=== PATIENT | male | born 1940 | race Caucasian/White ===

== ENCOUNTER 2018-08-30 11:47 | Day surgery (SDC) | payer MEDICARE, OTHER ==
[~2018-08-30] VITALS: Ht 182.9 cm; Wt 121.7 kg
[~2018-08-30 11:47] MED LIST: ALBU90OI6 INH; AMIO200 PO; ASPI81CH PO; BUME2; CARV25 PO; DILT180 PO; FLEC100 PO; FURO40 PO; HYDR1TAB94 PO; LANS15EC PO; LOSA50 PO; OMEP20ER PO; POTA10T PO; QUIN10 PO; TAMS.4ER PO; WARF2.5; WARF5 PO
--- NOTE | 2018-08-30 12:43 | NUR ---
08/30/18 1243 Carolina Berrios 1 IV MISS IN RW BY RN 1 GOOD IV IN RAC BY RN PT TOW
--- NOTE | 2018-08-30 14:45 | NUR ---
08/30/18 1445 Nieves Rodriguez DURING THE RECOVERY/STEP DOWN PORTION I OFFERED THE PATIENT SOMETHING TO DRINK X 3 AND HE REFUSED EACH TIME.
== END 2018-08-30 14:40 | disposition home or self-care (01) ==
LOC: ORSCSDS 11:47
PROVIDERS: Internal Medicine Gastroenterology
PROC: 0DBP8ZX Excision of Rectum, Via Natural or Artificial Opening Endoscopic, Diagnostic (ICD-10-PCS; principal; 2018-08-30 13:15)
PROC: 0DBM8ZX Excision of Descending Colon, Via Natural or Artificial Opening Endoscopic, Diagnostic (ICD-10-PCS; principal; 2018-08-30 13:15)
PROC: 0DBL8ZX Excision of Transverse Colon, Via Natural or Artificial Opening Endoscopic, Diagnostic (ICD-10-PCS; principal; 2018-08-30 13:15)
DX: Z12.11 Encounter for screening for malignant neoplasm of colon (principal); D12.3 Benign neoplasm of transverse colon; D12.4 Benign neoplasm of descending colon; D12.8 Benign neoplasm of rectum; K64.8 Other hemorrhoids; K44.9 Diaphragmatic hernia without obstruction or gangrene; K57.30 Diverticulosis of large intestine without perforation or abscess without bleeding; I10 Essential (primary) hypertension; G47.33 Obstructive sleep apnea (adult) (pediatric); Z95.0 Presence of cardiac pacemaker; Z79.899 Other long term (current) drug therapy; Z79.82 Long term (current) use of aspirin
CPT/HCPCS: 88305; J7120

== ENCOUNTER → 2021-02-19 | Outpatient (CLI) | payer MEDICARE, OTHER ==
[2021-02-19 12:27] LABS: Bun/Creatinine Ratio 15.3 (12.0-20.0); Calcium, Blood 8.7 mg/dL (8.5-10.1); Creatinine, Blood 1.83 mg/dL (0.60-1.20); Potassium, Blood 3.9 mmol/L (3.5-5.5)
== END ==
LOC: LAB 10:24 → LAB SHORT 10:24
DX: I42.8 Other cardiomyopathies (principal); M25.562 Pain in left knee; G89.29 Other chronic pain; I10 Essential (primary) hypertension
CPT/HCPCS: 36415; 80048

== ENCOUNTER 2022-09-25 07:11 | Day surgery (SDC) | payer MEDICARE, OTHER ==
[~2022-09-25] VITALS: Ht 182.9 cm; Wt 113.0 kg
[~2022-09-25 07:11] MED LIST changes: -AMIO200 PO; +Amiodarone HCl200 MG PO; -BUME2; +BUME2 PO
[2022-09-25] MEDS ORDERED: Vitamin D1000 UNI1 PO (07:51)
[2022-09-25] MEDS ORDERED: CRANBERRY PLUS VIT C PO (07:53)
[2022-09-25] MEDS ORDERED: FARXIGA10 MG PO (07:53)
[2022-09-25] MEDS ORDERED: DICLOFENAC SOD100 GM TD (07:54)
[2022-09-25] MEDS ORDERED: FAMO40 PO (07:54)
[2022-09-25] MEDS ORDERED: ENTRESTO 24 MG1 EACH PO (07:55)
[2022-09-25] MEDS ORDERED: Nitroglycerin1 EAC3 TOP (07:55)
--- NOTE | 2022-09-25 12:31 | NUR ---
patient verbaliozed understanding of discharge instructions and precautions. wrist board in place.. no bleeding. transferred via wheelchair to waiting car. son driving.
== END 2022-09-25 13:39 | disposition home or self-care (01) ==
LOC: MHTC 07:11
DX: I25.10 Atherosclerotic heart disease of native coronary artery without angina pectoris (principal); I35.0 Nonrheumatic aortic (valve) stenosis; I13.0 Hypertensive heart and chronic kidney disease with heart failure and stage 1 through stage 4 chronic kidney disease, or unspecified chronic kidney disease; N18.9 Chronic kidney disease, unspecified; I50.20 Unspecified systolic (congestive) heart failure; I42.8 Other cardiomyopathies; I48.91 Unspecified atrial fibrillation; E66.9 Obesity, unspecified
CPT/HCPCS: 93454; 99152; C1887; C1894; J1644; J2250; J3010; J7030; J7040; J7050; Q9967

== ENCOUNTER 2024-11-10 11:34 | Inpatient (IN) | payer MEDICARE, OTHER ==
[~2024-11-10] VITALS: Ht 185.4 cm; Wt 103.4 kg
[2024-11-10] VITALS (33 sets, daily range): BP systolic 82–154; BP diastolic 61–97
[~2024-11-10 11:34] MED LIST changes: +CRANBERRY PLUS VIT C PO; +DICLOFENAC SOD100 GM TD; +ENTRESTO 24 MG1 EACH PO; +FAMO40 PO; +FARXIGA10 MG PO; +Nitroglycerin1 EAC3 TOP; +Vitamin D1000 UNI1 PO
[2024-11-10 11:51] LABS: Calcium, Ionized (POC) 1.06 mmol/L (1.10-1.46); Chloride (POC) 109 mmol/L (98-108); Creatinine (POC) 2.3 mg/dL (0.8-1.3); Glucose (ISTAT POC) 142 mg/dL (70-99); Hemoglobin (POC) 15.3 g/dL (13.5-17.5); Potassium (POC) 4.4 mmol/L (3.5-5.5); Sodium (POC) 140 mmol/L (135-148); Total CO2 (POC) 24 mmol/L (21-32)
[2024-11-10] MEDS ORDERED: propofoL 100 ML IV SCH (11:55)
[2024-11-10] MEDS ORDERED: FentaNYL Citrate 50 MCG/ML 2 ML Injection IV PRN (11:55)
[2024-11-10 12:07] LABS: BASOPHILS ABSOLUTE AUTO 0.13 K/mm3 (0.00-0.23); BASOPHILS PERCENT AUTO 2 % (0-2); EOSINOPHILS ABSOLUTE AUTO 0.31 K/mm3 (0.00-0.68); EOSINOPHILS PERCENT AUTO 4 % (0-6); Hematocrit 47.3 % (37.0-53.0); Hemoglobin 15.6 g/dL (13.5-17.5); IMMATURE GRAN ABSOLUTE AUTO 0.03 K/mm3 (0.00-0.10); IMMATURE GRAN PERCENT AUTO 0 % (0-1); LYMPHOCYTES ABSOLUTE AUTO 2.17 K/mm3 (0.84-5.20); LYMPHOCYTES PERCENT AUTO 29 % (21-46); MONOCYTES ABSOLUTE AUTO 1.04 K/mm3 (0.16-1.47); MONOCYTES PERCENT AUTO 14 % (4-13); Mean Corpuscular HGB 34.8 pg (26.0-34.0); Mean Corpuscular Volume 106 fL (80-100); Mean Platelet Volume 11.8 fL (9.1-12.4); NEUTROPHILS PERCENT AUTO 52 % (41-73); Platelet Count 125 K/mm3 (150-400); RDW Coefficient Variation 14.6 % (11.7-14.2); RDW Standard Deviation 57.1 fL (35.1-46.3); Red Blood Cell Count 4.48 M/mm3 (4.30-5.90); White Blood Cell Count 7.58 K/mm3 (4.00-11.30)
[2024-11-10] MEDS ORDERED: NS 1,000 ML IV ONE (12:18)
[2024-11-10] MEDS ORDERED: NS 1,000 ML IV SCH (12:20)
[2024-11-10 12:23] LABS: Albumin, Blood 3.3 g/dL (3.4-5.0); Albumin/Globulin Ratio 1.1 (0.8-1.8); Bilirubin, Total 0.8 mg/dL (0.1-1.0); Bun/Creatinine Ratio 19.5 (12.0-20.0); Calcium, Blood 8.1 mg/dL (8.5-10.1); Globulin, Blood 2.9 g/dL (2.2-4.0); Potassium, Blood 4.5 mmol/L (3.5-5.5); Total Protein, Blood 6.2 g/dL (6.4-8.2)
[2024-11-10 13:57] LABS: Source, Urine Foley catheter
[2024-11-10 14:01] LABS: Appearance, Urine Hazy (Clear); Bilirubin, Urine Neg (Neg); Blood, Urine 5+ (Neg); Glucose Qualitative, Urine 3+ (Neg); Ketones, Urine Neg (Neg); Leukocyte Esterase, Urine Neg (Neg); Nitrite, Urine Neg (Neg); Protein, Urine 1+ (Neg); Urobilinogen, Urine NORM (Normal)
[2024-11-10 14:13] LABS: Color, Urine Pale Yellow (P-Yellow)
[2024-11-10 14:15] LABS: Hyaline Casts 0-2 /lpf (0-2); Red Blood Cells, Urine 50-100 /hpf (0-2); White Blood Cells, Urine 0-2 /hpf (0-5)
[2024-11-10 14:16] LABS: Bacteria Not Seen /hpf; Squamous Epithelial Cells Not Seen /hpf (Few)
[2024-11-10] MEDS ORDERED: Magnesium Hydroxide Conc 10 ML UDC PO PRN (14:45)
--- NOTE | 2024-11-10 15:01 | NUR ---
Spiritual Care At the request of family this ob tech came to bedside in ED26. Pt. is intubated. Spouse and son are at bedside. Facilitated a life review and family spoke of the Pts. elisabet and their local Gnosticism sikh. Dr. Shore came and met with the family. When he left we gathered at bedside and prayed for the Pt. Family verbalized gratitude for the spiritual care visit.
[2024-11-10 15:51] LABS: International Normalized Ratio 2.88; Prothrombin Time Results 28.5 Sec (9.7-11.5)
--- NOTE | 2024-11-10 16:00 | NUR ---
[place] of care: Received patient from ER. RASS +2, purposeful movement but does not follow commands, does track with cough/gag, pupils 2/brisk. Propofol increased to 40 mcgs/kg/min per Dr. Patino due to agitation. In V paced rhythm with multiple PVCs. Blood pressures stable. On ACVC 16/500/35%/5, diminished lung sounds. Garner cath & OGT in place. PIV x3. Son & updated at bedside.
[2024-11-10] MEDS ORDERED: Etomidate 2MG / ML 10ML Vial IV ONE (16:57)
[2024-11-10] MEDS ORDERED: Rocuronium Bromide 10 MG/ML 5ML Injection IV ONE (16:57)
[2024-11-10] MEDS ORDERED: Bumetanide 0.25 MG/ML 4ML ViaL IV SCH (17:00)
--- NOTE | 2024-11-10 17:59 | NUR ---
End of shift summary: No acute changes since assumption of care. Will continue to monitor. See charting for further details.
[2024-11-10] MEDS ORDERED: Cetylpyridinium Chloride 1 EA MISC MT SCH (20:00)
[2024-11-11] VITALS (59 sets, daily range): BP systolic 82–156; BP diastolic 48–110
[2024-11-11] MEDS ORDERED: Hydrogen Peroxide 1.5 % Solution MT SCH
[2024-11-11 03:24] LABS: Hematocrit 47.4 % (37.0-53.0); Hemoglobin 15.7 g/dL (13.5-17.5); Mean Corpuscular HGB 33.9 pg (26.0-34.0); Mean Corpuscular HGB Conc 33.1 g/dL (31.5-36.5); Mean Corpuscular Volume 102 fL (80-100); Mean Platelet Volume 11.5 fL (9.1-12.4); Platelet Count 129 K/mm3 (150-400); RDW Coefficient Variation 14.6 % (11.7-14.2); RDW Standard Deviation 55.8 fL (35.1-46.3); Red Blood Cell Count 4.63 M/mm3 (4.30-5.90); White Blood Cell Count 8.28 K/mm3 (4.00-11.30)
[2024-11-11 03:39] LABS: Anti-Xa UFH, PHA Monitoring <0.10 IU/mL; International Normalized Ratio 2.95; Prothrombin Time Results 29.1 Sec (9.7-11.5)
[2024-11-11 03:43] LABS: Bun/Creatinine Ratio 18.6 (12.0-20.0); Creatinine, Blood 1.99 mg/dL (0.60-1.20); Potassium, Blood 3.5 mmol/L (3.5-5.5)
[2024-11-11] MEDS ORDERED: Pantoprazole Sodium 20 MG Tab PO SCH (06:00)
--- NOTE | 2024-11-11 06:23 | NUR ---
SHIFT SUMMERY PT REMAINS INTUBATED W/ ETT INTACT AND PATENT TO THE VENT. PT HAS BEEN PACED ON THE MARKET RESEARCH EXECUTIVE. BP WNL. OXYGEN SAT >92% W/NO DISTRESS THIS SHIFT. PT IS SEDATED W/PROPOFOL. HUSSEIN CATH INTACT PATENT AND DRAINING TO GRAVITY. NO ACUTE CHANGES TO POC THIS SHIFT
[2024-11-11] MEDS ORDERED: Enoxaparin 40 MG/0.4 ML SYR SC SCH (09:00)
--- NOTE | 2024-11-11 10:17 | NUR ---
EXTUBATION PT PLACED ON PRESSURE SUPPORT 02/10 BY RT LETHA. SEDATION OFF. PT ABLE TO FOLLOW COMMANDS AND WITHOUT RESPIRATORY DISTRESS. DR LANZA GAVE THE ORDER TO EXTUBATE. PT EXTUBATED AT 1008 [address] LETHA. PT PLACED ON 2L O2 NC. PT WITH GOOD COUGH EFFORT. OGT REMOVED WITH EXTUBATION. PT FAMILY AT BEDSIDE.
[2024-11-11] MEDS ORDERED: Bumetanide 0.25 MG/ML 4ML ViaL IV SCH (14:00)
[2024-11-11] MEDS ORDERED: Potassium Chloride 20 MEQ/15 ML UDC PO ONE (14:00)
[2024-11-11] MEDS ORDERED: TORSE20 PO (15:03)
[2024-11-11] MEDS ORDERED: IPRATROPIUM BRO30 ML (15:07)
--- NOTE | 2024-11-11 17:51 | NUR ---
SHIFT SUMMARY PT DID WELL THIS SHIFT. PT EXTUBATED THIS MORNING TO 2L O2 NC. PT HAS REMAINED AWAKE, ALERT, AND ORIENTED. PT REMAINS ON 2L O2 NC. PT WITH STRONG COUGH EFFORT AND SPEECH IS CLEAR. PT TAKING PO INTAKE WELL. VITAL SIGNS HAVE REMAINED STABLE. PT WITH TWO SEPERATE 4-5 BEAT RUNS OF V TACH THIS SHIFT. PT REMAINS PACED WITH HR 70'S AND BP STABLE. HUSSEIN TEMP PROBE REMAINS IN PLACE WITH LARGE VOLUME OF CLEAR YELLOW URINE OUTPUT NOTED WITH DIURESIS. PT FAMILY AT BEDSIDE. WILL CONTINUE TO MONITOR AND REPORT OFF TO ONCOMING RN.
[2024-11-11] MEDS ORDERED: Warfarin Sodium 2 MG Tab PO ONE (18:10)
[2024-11-11] MEDS ORDERED: Amiodarone HCl 200 MG Tab PO SCH (18:40)
--- NOTE | 2024-11-11 18:44 | NUR ---
DR JOÃO MOYER RETURNED CALL AND DISCUSSED EPISODES OF V TACH. DR MOYER PLANS TO CALL [facility] ABOUT POTENTIAL ANGIO NOW THAT PT IS EXTUBATED. ORDERS RECIEVED TO RESTART PT HOME AMIODARONE.
--- NOTE | 2024-11-11 20:59 | NUR ---
PT HAS HAD MULTIPLE SHORT RUNS OF VTACH SINCE MY SHIFT BEGAN. HE DENIES ANY SYMPTOMS W/THESE EPISODES. DR MOYER WAS NOTIFIED. STATED THAT HE DID NOT WANT ANY INTERVENTIONS AND THAT HE WAS AWARE PT WAS HAVING THESE EPISODES. HE ALSO STATED THAT HE DID NOT WANT ME TO CALL THE BEARING PRESS MACHINE OPERATOR BANK BOSS TO NOTIFY HIM OF ANY VTACH EPISODES. HE STATED TO JUST GIVE HIM HIS HOME MEDICATIONS ORDERED AND HE WOULD TAKE CARE OF THE PATIENT TOMORROW. NOTIFIED CHARGE NURSE SARANYA CASTILLO RN OF HIS RESPONSE WELL.
[2024-11-11] MEDS ORDERED: Sacubitril/Valsartan 24 MG-26 MG Tab PO SCH (21:00)
[2024-11-11] MEDS ORDERED: Carvedilol 25 MG Tab PO SCH (21:00)
[2024-11-12] VITALS (18 sets, daily range): BP systolic 94–128; BP diastolic 54–112
[2024-11-12 03:53] LABS: International Normalized Ratio 3.73; Prothrombin Time Results 36.2 Sec (9.7-11.5)
[2024-11-12 03:56] LABS: Bun/Creatinine Ratio 16.4 (12.0-20.0); Calcium, Blood 7.9 mg/dL (8.5-10.1); Creatinine, Blood 2.2 mg/dL (0.60-1.20); Magnesium, Blood 2.2 mg/dL (1.6-2.4); Potassium, Blood 3.6 mmol/L (3.5-5.5)
--- NOTE | 2024-11-12 05:08 | NUR ---
SHIFT SUMMERY PT HAS HAD MULTIPLE EPISODES OF ASYMPTOMATIC VTACH. BP HAS BEEN WNL. HE IS ALERT AND ORIENTED X4. HUSSEIN CATH IS INTACT PATENT AND DRAINING TO GRAVITY. HE ONLY HAS ONE IV, IS AWARE AND IS FINE. WHEN PACED RATE IS IN THE 70S. DR MOYER TO SEE PATIENT TODAY. AFEBRILE. OXYGEN SAT >92%. PT W/OUT ACUTE DISTRESS OVERNIGHT.
[2024-11-12] MEDS ORDERED: Potassium Chloride 20 MEQ TabCR PO ONE (07:25)
--- NOTE | 2024-11-12 07:35 | NUR ---
START OF SHIFT THIS NURSE ASSUMED CARE AT APPROXIMATELY 0700. PT RESTING IN BED WITHOUT ANY COMPLAINTS OR CONCERNS. PT APPEARS TO BE V PACED. REPORT FROM PREVIOUS NURSE STATED MANY RUNS OF VTACH WITH THE PT COUGHING TO STOP THE VTACH. WILL CONTINUE WITH THE PLAN OF CARE.
[2024-11-12] MEDS ORDERED: Torsemide 20 MG TAB PO SCH (09:00)
[2024-11-12] MEDS ORDERED: Amiodarone HCl 200 MG Tab PO ONE (15:00)
--- NOTE | 2024-11-12 16:53 | NUR ---
SHIFT SUMMARY PT RESTING IN BED. PT USED BEDSIDE COMMODE WITH 2X PERSON ASSIST AND WALKER. PT HAS KNOWN UNSTEADY LEFT KNEE. THIS RN NOTIFIED MD MOYER OF PT R EYE HAVING BLOOD AROUND IT AND THAT THE PT STATED ITS FROM THE WARFARIN HE TAKES. PT HAS HAD 2-3 SEPARATE UNSUSTAINED RUNS OF VTACH TODAY WITH CARDIOLOGY AWARE. REPORT GIVEN TO NEW NURSE AND PT WILL BE TRANSFERED TO PCU BEFORE END OF SHIFT. WILL CONTINUE WITH THE PLAN OF CARE UNTIL HAND OFF IS PERFORMED.
--- NOTE | 2024-11-12 17:28 | NUR ---
PT TRANSFERED FROM ICU 11 TO PCU 02, REPORT FROM YOVANNY. THE PT WAS BROUGHT TO THE ROOM VIA BED AND WAS TRANSFERED TO THE PCU BED WITH THREE PERSON ASSIST AND GAIT BELT. PT IS VERY WEAK AND DECONDITIONED. HE STATES HE HAS CHRONIC LEFT KNEE ISSUES THAT IMPAIRS HIS GAIT. PT REPORTS BEING ABLE TO TURN HIMSELF IN BED AND LAY ON HIS SIDE. THIS WAS CONFIRMED FROM ICU NURSE YOVANNY. HE IS A&OX4, AND FOLLOWS CONVERSATION APPROPRAITELY. HE WAS PLACED ON TELE AND IS V PACED 70'S. HE HAS HAD TWO SHORT RUNS OF VTACH SINCE ARRIVING TO THE ROOM. PT ASYMPTOMATIC. BP STABLE AND HE DENIES ANY ANGINA OR CHEST PRESSURE. HE IS ON RA W/ SP02 >93%, HE DENIES ANY SOB. HIS HUSSEIN WAS D/C'D IN ICU AND PT REPORTS VOIDING SINCE IT BEING PULLED. NO COMPLAINTS FROM PT. HE IS SITTING UP IN THE BED EATING DINNER. CALL LIGHT IN REACH, BED IN LOW. SEE NOTES FOR ANY UPDATES.
[2024-11-13] VITALS (13 sets, daily range): BP systolic 70–113; BP diastolic 51–73
[2024-11-13 04:36] LABS: Bun/Creatinine Ratio 18.2 (12.0-20.0); Calcium, Blood 8.2 mg/dL (8.5-10.1); Creatinine, Blood 2.2 mg/dL (0.60-1.20); Magnesium, Blood 2.2 mg/dL (1.6-2.4); Potassium, Blood 3.6 mmol/L (3.5-5.5)
[2024-11-13 04:43] LABS: International Normalized Ratio 2.67; Prothrombin Time Results 26.6 Sec (9.7-11.5)
--- NOTE | 2024-11-13 06:05 | NUR ---
NOTE FOR PALLATIVE CARE PT'S DAUGHTER ([place]) EXPRESSING CONCERN FOR PT'S ABILITY TO FUNCTION WHEN RETURNING HOME AFTER DISCHARGE. WOULD LIKE TO GET IN TOUCH WITH SOCIAL WORK FACULTY MEMBER TO HELP COORDINATE RESOURCES FOR PT. EARNESTINE NUMBER
--- NOTE | 2024-11-13 06:13 | NUR ---
PT CALM, COOPERATIVE, AND PLEASANT DURING SHIFT. VSS, SOME RUNS OF VTACH BUT PACEMAKER PACING. ASYMPTOMATIC. RRR AND UNLABORED, ON RA, A&OX4, DENIES C/P AND PHYSICAL PAIN. ABLE TO VOID AFTER HUSSEIN REMOVAL. HEAVY ASSIST X3 STAFF TO GET TO COMMODE, PALLIATIVE CARE CONSULT PLACED - [place] ([place]) #[phone] WANTS TO HAVE SOCIAL WORK CONSULT, TO RELAY TO AM SHIFT. BED ALARM ON, NO CURRENT CONCERNS WITH PT AT THIS TIME.
[2024-11-13] MEDS ORDERED: Potassium Chloride 20 MEQ TabCR PO SCH (09:00)
[2024-11-13] MEDS ORDERED: Amiodarone HCl 200 MG Tab PO SCH (09:00)
[2024-11-13 09:17] LABS: International Normalized Ratio 2.68; Prothrombin Time Results 26.7 Sec (9.7-11.5)
[2024-11-13] MEDS ORDERED: NS 500 ML IV SCH (09:30)
--- NOTE | 2024-11-13 17:53 | NUR ---
SHIFT SUMMARY: PT HAS BEEN A&Ox3, UNSURE OF DATE, COOPERATIVE W/CARE, GENERALLY WEAK. PT DENIES SOB, O2 SATS >93% ON RA. PT DENIES CP, PACED RHYTHM ON MONITOR, RATE 70s, NO REPORTS OF VTACH THIS SHIFT. THIS AM, PT WAS HYPOTENSIVE W/MAP <65. PROVIDER WAS NOTIFIED, 500ML FLUID BOLUS GIVEN PER ORDERS, BP IMPROVED T/OUT THE SHIFT W/MAP >65. ZULEMA BLE. PT WORKS W/PT TODAY, SNF RECOMMENDATION IN PLACE, PT IS CURRENTLY 2-3 ASSIST W/FWW AND GB. PT HAS BEEN CONTINENT THIS SHIFT, BMx2. DEICER KIT ASSEMBLER AT BEDSIDE W/FAMILY TODAY TO UPDATE ON PLAN OF CARE AND TO DISCUSS FAMILY CONCERNS.
[2024-11-13] MEDS ORDERED: Warfarin Sodium 1 MG Tab PO ONE (18:00)
[2024-11-14] VITALS (8 sets, daily range): BP systolic 83–120; BP diastolic 53–72
[2024-11-14 04:23] LABS: International Normalized Ratio 2.21; Prothrombin Time Results 22.3 Sec (9.7-11.5)
[2024-11-14 04:30] LABS: Bun/Creatinine Ratio 23.7 (12.0-20.0); Creatinine, Blood 2.36 mg/dL (0.60-1.20); Potassium, Blood 3.7 mmol/L (3.5-5.5)
--- NOTE | 2024-11-14 06:51 | NUR ---
PT STABLE THROUGHOUT SHIFT. NO LONG RUNS OF VTACH PRESENT. PT IS PACED THOUGH ECTOPY IS PRESENT OTHERWISE. PT AOX4. PT 1-2 ASSIST TO W/C FOR TRANSPORT TO BATHROOM. PT DID HAVE SMALL, LOOSE BMS. PT USED URINAL AT BEDSIDE. LINEN AND GOWN CHANGED D/T URINAL SPILL. PT REQUIRING 2L O2 WHILE SLEEPING TO MAINTAIN SAT>93%. NO C/O CP OR DYSPNEA. VITAL SIGNS WNL.
--- NOTE | 2024-11-14 08:43 | NUR ---
call to md romo this rn called md romo to notify of soft blood pressure, right arm 83/59 map 69, and left arm 88/57 and map 65. orders to give 250mls bolus and okay to give po amio this morning and to hold coreg, entresto and demedax per md romo orders. patient is non symptomatic with soft blood pressure.
[2024-11-14] MEDS ORDERED: NS 500 ML IV ONE (09:00)
--- NOTE | 2024-11-14 09:34 | NUR ---
am note this rn assumed care at 0700. bp hypotensive see previous note. tele v paced. patient is alert and oriented x4. patient is able to make needs known and uses call [employer] approproaitely. denies pain, chest pain/pressure or shortness of breath. patient has red on back from where gait belt meets his skin from his gown moving. patient has scattered brusingin throughout and brown discoloration to lower extremities. see shift assessmesnt for further detials. no runs of v tach since this rn assumed care.
--- NOTE | 2024-11-14 10:37 | NUR ---
transfer of care this rn gavr report to abhi herron whom is assuming care at this time
--- NOTE | 2024-11-14 13:33 | NUR ---
Spiritual Care Visit. Pt. is awake in bed when he welcomes my visit. Spouse is at bedside in a wheelchair. Facilitated introductions as the Pt. was intubated in the ED when I first connected with the family. More life review ensued. Considered matters of elisabet and belief. Pt. displayed evidence of being aware and engaged. Prayed for the Pt. Pt. verbalized gratitude for the spiritual care visit and welcomed this aerial gunner superintendent to return.
--- NOTE | 2024-11-14 17:08 | NUR ---
SHIFT SUMMARY PT A&Ox4, CALLS AND COMMUNICATES NEEDS APPROPRIATELY. 1-2 ASSIST TO WHEELCHAIR, WHEELCHAIR TO BATHROOM. CONTINENT OF URINE AND BOWEL. BP SOFT WITH SBP 90-100's, MAP> 60, ASYMPTOMATIC, DENIES CP/PRESSURE. SpO2> 92% RA, DENIES SOB. NO C/O PAIN. FAMILY AT BEDSIDE THROUGHOUT SHIFT. NO OTHER EVENTS, WILL REPORT TO ONCOMING RN.
[2024-11-14] MEDS ORDERED: Warfarin Sodium 1 MG Tab PO SCH (18:00)
[2024-11-14] MEDS ORDERED: Sacubitril/Valsartan 24 MG-26 MG Tab PO SCH (21:00)
[2024-11-15] VITALS (28 sets, daily range): BP systolic 79–141; BP diastolic 44–89
--- NOTE | 2024-11-15 04:40 | NUR ---
SHIFT SUMMARY PT REMAINS AOX4. SBP 120s THROUGHOUT NIGHT. PT V-PACED ON TELE WITH 2 EPISODES OF VTACH THROUGHOUT NIGHT. MD AWARE. PT ASYMPTOMATIC. EACH OCCURRED WHEN PT WAS USING BATHROOM. PT REMAINS ON RA >96%. FREQUENT BM's THROUGHOUT NIGHT. WILL PASS ONTO DAYSHIFT TO POSSIBLY GET A STOOL SAMPLE. NO FURTHER QUESTIONS OR CONCERNS AT THIS TIME. BED ALARM REMAINS ON WITH CALL HEART WITHIN REACH. WILL CONTINUE WITH PLAN OF CARE.
[2024-11-15 04:47] LABS: BASOPHILS ABSOLUTE AUTO 0.13 K/mm3 (0.00-0.23); BASOPHILS PERCENT AUTO 2 % (0-2); EOSINOPHILS ABSOLUTE AUTO 0.63 K/mm3 (0.00-0.68); EOSINOPHILS PERCENT AUTO 7 % (0-6); Hematocrit 44.9 % (37.0-53.0); Hemoglobin 15.2 g/dL (13.5-17.5); IMMATURE GRAN ABSOLUTE AUTO 0.05 K/mm3 (0.00-0.10); IMMATURE GRAN PERCENT AUTO 1 % (0-1); LYMPHOCYTES ABSOLUTE AUTO 1.39 K/mm3 (0.84-5.20); LYMPHOCYTES PERCENT AUTO 16 % (21-46); MONOCYTES ABSOLUTE AUTO 1.46 K/mm3 (0.16-1.47); MONOCYTES PERCENT AUTO 17 % (4-13); Mean Corpuscular HGB 34.4 pg (26.0-34.0); Mean Corpuscular HGB Conc 33.9 g/dL (31.5-36.5); Mean Corpuscular Volume 102 fL (80-100); Mean Platelet Volume 11.5 fL (9.1-12.4); NEUTROPHILS ABSOLUTE AUTO 5.06 K/mm3 (1.96-9.15); NEUTROPHILS PERCENT AUTO 58 % (41-73); Platelet Count 155 K/mm3 (150-400); RDW Coefficient Variation 13.9 % (11.7-14.2); RDW Standard Deviation 52.6 fL (35.1-46.3); Red Blood Cell Count 4.42 M/mm3 (4.30-5.90); White Blood Cell Count 8.72 K/mm3 (4.00-11.30)
[2024-11-15 05:01] LABS: International Normalized Ratio 2.03; Prothrombin Time Results 20.6 Sec (9.7-11.5)
[2024-11-15 05:13] LABS: Albumin, Blood 2.9 g/dL (3.4-5.0); Anion Gap 13 mmol/L (3-11); Blood Urea Nitrogen 64 mg/dL (8-24); Bun/Creatinine Ratio 32.2 (12.0-20.0); CO2, Blood 22 mmol/L (21-32); Calcium, Blood 8.1 mg/dL (8.5-10.1); Chloride, Blood 107 mmol/L (98-108); Creatinine, Blood 1.99 mg/dL (0.60-1.20); Glomerular Filtration Rate 33 (60-); Glucose, Blood 103 mg/dL (70-99); Magnesium, Blood 2.3 mg/dL (1.6-2.4); Phosphorus, Blood 2.9 mg/dL (2.5-4.9); Potassium, Blood 3.3 mmol/L (3.5-5.5); Sodium, Blood 139 mmol/L (136-145)
[2024-11-15] MEDS ORDERED: Torsemide 20 MG TAB PO SCH (09:00)
[2024-11-15] MEDS ORDERED: Metoprolol Succinate 50 MG TABCR PO SCH (09:00)
[2024-11-15] MEDS ORDERED: Spironolactone 12.5 MG TAB PO SCH (09:00)
[2024-11-15] MEDS ORDERED: Empagliflozin 10 MG TAB PO SCH (09:00)
[2024-11-15] MEDS ORDERED: Midodrine 2.5 MG Tab PO SCH (11:00)
--- NOTE | 2024-11-15 15:28 | NUR ---
[facility] SIGNED BY PROVIDER, ORIGINAL AND COPY PLACED IN PT CHART. FAXED TO [facility] REGISTRY, AND MEDICAL RECORDS
--- NOTE | 2024-11-15 17:42 | NUR ---
PT SUMMARY; PT HAS SOFT BLOD PRESSURE THIS MORNING AFTER FIRST DOSE OF METOPROLOL SBP 70-90'S MAP 55-60'S MD MADE AWARE PT STARTED ON MIDODRINE 2.5MG TID TO HOLD IF SBP >130'S, HRR VPACED 70-80'S AT REST, WAS TACHING UP TO 130'S THIS MORNING WHEN GOING TO THE BATHROOM VTACH RHYTHM PER TELE, LAST EPISODE IS AT 1330 EVER SINCE THAT PT HAS BEEN GOING TO THE BATHROOM WITHOUT TACHING UP. SATS ABOVE 95% ON RA, AFEBRILE. PT HAS BEEN GOING TO THE BATHROOM OFTEN FOR BM'S, MOSTLY SMALLL SOFT BMS, PT REPORTED ALWAYS FEELING THE URGE TO HAVE A BM. PT USES HOME WHEELCHAIR, PT SELF TRANSFERRED ONCE TO THE BATHROOM WHEN PT SAT UP IN THE WHEELCHAIR FOR DINNER, PT HAS BEEN PEDALLING IN THE ROOM INDEPENDENTLY. PT WAS EDUCATED OF RISK OF SELF TRANSFERRING, ENCOURAGE USE OF CALL LIGHT OTHER NAPIER 1-2 PA FOR TRANSFERS VIA GAITBELT AND WALKER. NO OTHER ISSUES ENCOUNTERED FAMILY WAS IN THIS MORNING WAS GIVEN UPDATE REGARDING PT'S STATUS, DR RIDLEY ABLE TO DISCUSS PLANS WITH THEM. NO OTHER ISSUES ENCOUNTERED WILL REPORT TO ONCOMING SHIFT
[2024-11-15] MEDS ORDERED: Warfarin Sodium 2.5 MG Tab PO ONE (18:00)
[2024-11-16] VITALS (8 sets, daily range): BP systolic 97–133; BP diastolic 47–80
[2024-11-16 04:33] LABS: International Normalized Ratio 1.83; Prothrombin Time Results 18.7 Sec (9.7-11.5)
[2024-11-16 04:43] LABS: Bun/Creatinine Ratio 28.1 (12.0-20.0); Calcium, Blood 8.7 mg/dL (8.5-10.1); Creatinine, Blood 2.21 mg/dL (0.60-1.20); Potassium, Blood 3.9 mmol/L (3.5-5.5)
--- NOTE | 2024-11-16 06:00 | NUR ---
SHIFT SUMMURY: A/O X 4. BP STABLE/MAP >65. V PACED IN THE 80'S. MULTIPE PROLONGED RUNS OF V TACH NOTED ON TELE, WITH RATE IN THE 130'S. PATIENT ASYMPTOMATIC, PATIENT REMAINS STABLE. V TACH OCCURS WITH EXCERSION WHILE PATIENT USING BATHROOM. ON RA WITH SATURATION >90. HAD FREQUENT EPISODES OF URINATION THROUGHOUT THE NIGHT. BLADDER SCANNED WITH 300ML NOTED. OFFERED TO STRAIGHT CATH TO RELIEF FREQUENT URINATION AND PATIENT DECLINED. USE OF CALL LIGHT REENFORCED PATIENT WALKED TO THE BATHROOM UNASSISTED. BED ALARM ACTIVATED. CALL LIGHT IS WITHIN REACH AND BED IS AT THE LOWEST POSITON.
[2024-11-16] MEDS ORDERED: Metoprolol Succinate 50 MG TABCR PO SCH (09:00)
[2024-11-16] MEDS ORDERED: Furosemide 20 MG Tab PO SCH ×2 (09:00→18:00)
[2024-11-16] MEDS ORDERED: Midodrine 2.5 MG Tab PO PRN (13:00)
[2024-11-16] MEDS ORDERED: Tamsulosin HCl 0.4 MG Cap PO SCH (14:00)
[2024-11-16] MEDS ORDERED: Lidocaine 2% Jelly Uro-Jet UR ONE (15:55)
[2024-11-16 17:01] LABS: Source, Urine Foley catheter
[2024-11-16 17:07] LABS: Appearance, Urine Hazy (Clear); Bilirubin, Urine Neg (Neg); Blood, Urine 5+ (Neg); Color, Urine Amber (P-Yellow); Glucose Qualitative, Urine 4+ (Neg); Ketones, Urine Neg (Neg); Leukocyte Esterase, Urine 1+ (Neg); Nitrite, Urine Neg (Neg); Protein, Urine 3+ (Neg); Specific Gravity, Urine 1.015 (1.003-1.022); Urobilinogen, Urine NORM (Normal)
[2024-11-16 17:25] LABS: Red Blood Cells, Urine 50-100 /hpf (0-2); Squamous Epithelial Cells Rare /hpf (Few)
[2024-11-16 17:28] LABS: Amorphous Light (0-Heavy); Bacteria Many /hpf; Hyaline Casts 0-2 /lpf (0-2)
--- NOTE | 2024-11-16 17:42 | NUR ---
PT SUMMARY; PT HAD 3 WAY HUSSEIN CATHETER PLACED, PT HAS BEEN RESTLESS T/O SHIFT TRYING TO USE THE BATHROOM FREQUENTLY WITH LESS OUTPUT, TRIED CONDOM CATH AND PT ONLY PUT OUT ABOUT 50 MLS, PT THEN STARTED C/O PAIN WHEN VOIDING IN THE BATHROOM AND WAS TACHING UP TO 120'S (VTACH) NON SYMPTOMATIC PT IN AND OUT OF IT. PT STARTED ON FLOMAX WITH NO EFFECT. BLADDER SCAN PERFOMRED SHOWED >781 URINE RETAINED. ATTEMPTED TO PERFORM STRAIGHT CATH WITH NO LUCK, PT STARTED PASSING BLOOD WITH SOME CLOTS, TRIED 14 FR COUDE STILL WITH NO LUCK. ORDER RECEIVED FOR 3 WAY HUSSEIN, BLADDER IRRIGATION AND UROJET. [address] WAY HUSSEIN 18FR 10CC BALLOON WAS PLACED SUCCESSFULLY. IRRIGATED WITH 500MLS NS URINE STARTED CLEARING UP. PT TOOK A NAP AFTER AND FELT BETTER AFTER HUSSEIN WAS PLACED. VITALS HRR REMAINS VPACED MOSTLY 80'S, TACHS UP TO 120'S WITH EXERTION AT TIMES, SBP 110'S, SATS ABOVE 95% ON RA, AFEBRILE. PT STILL PLANNING ON DISCHARGING TO SNF TOMORROW IF STABLE. NO OTHER ISSUES ENCOUNTERED PT INDEPENDENTLY MOVING AROUND WITH HIS WHEELCHAIR IN [facility] ROOM , FAMILY CAME IN TO VISIT. WILL REPORT TO ONCOMING SHIFT
[2024-11-16] MEDS ORDERED: Warfarin Sodium 5 MG Tab PO SCH (18:00)
[2024-11-17 03:43] LABS: BASOPHILS ABSOLUTE AUTO 0.13 K/mm3 (0.00-0.23); BASOPHILS PERCENT AUTO 1 % (0-2); EOSINOPHILS PERCENT AUTO 3 % (0-6); Hematocrit 43.2 % (37.0-53.0); Hemoglobin 14.8 g/dL (13.5-17.5); IMMATURE GRAN ABSOLUTE AUTO 0.06 K/mm3 (0.00-0.10); IMMATURE GRAN PERCENT AUTO 1 % (0-1); LYMPHOCYTES ABSOLUTE AUTO 1.47 K/mm3 (0.84-5.20); LYMPHOCYTES PERCENT AUTO 15 % (21-46); MONOCYTES ABSOLUTE AUTO 1.52 K/mm3 (0.16-1.47); MONOCYTES PERCENT AUTO 16 % (4-13); Mean Corpuscular HGB 34.9 pg (26.0-34.0); Mean Corpuscular HGB Conc 34.3 g/dL (31.5-36.5); Mean Corpuscular Volume 102 fL (80-100); Mean Platelet Volume 10.9 fL (9.1-12.4); NEUTROPHILS PERCENT AUTO 65 % (41-73); Platelet Count 161 K/mm3 (150-400); RDW Standard Deviation 52.6 fL (35.1-46.3); Red Blood Cell Count 4.24 M/mm3 (4.30-5.90); White Blood Cell Count 9.78 K/mm3 (4.00-11.30)
[2024-11-17 03:46] VITALS: BP 116/70
[2024-11-17 03:57] LABS: International Normalized Ratio 2.07
[2024-11-17 04:10] LABS: Bun/Creatinine Ratio 27.2 (12.0-20.0); Calcium, Blood 8.3 mg/dL (8.5-10.1); Creatinine, Blood 2.13 mg/dL (0.60-1.20); Potassium, Blood 3.6 mmol/L (3.5-5.5)
--- NOTE | 2024-11-17 06:17 | NUR ---
SHIFT SUMMURY: A/O X4 WITH FORGETFULNESS. BP SOFT/MAP >65.ON RA WITH SATS >90. V PACED HEART RATE 80'S.HUSSEIN NOT HOOKED ON IRRIGATION AT SHIFT CHANGE. THIS RN DID NOT HAVE TO IRRIGATE BLADDER/ URINE DRAINAGE IN BAG WAS YELLOW WITHOUT BLOOD CLOTS. DENIES PAIN/ DISCOMFORT. BED ALARM ACTIVATED FOER SAFETY ONE ASSIST TO BATHROOM WITH WHEELCHAIR. CALL HEART IS WITHIN REACH AND BED IS AT THE LOWEST POSITION
[2024-11-17 08:23] VITALS: BP 100/52
[2024-11-17] MEDS ORDERED: METO100ER PO (10:52)
[2024-11-17] MEDS ORDERED: MIDO5 PO (10:53)
[2024-11-17 11:11] VITALS: BP 103/69
--- NOTE | 2024-11-17 13:52 | NUR ---
SHIFT SUMMARY PT A&Ox4, CALLS AND COMMUNICATES NEEDS APPROPRIATELY. 1 ASSIST TO WHEELCHAIR, WHEELCHAIR TO BATHROOM. CONTINENT OF URINE AND BOWEL. BP STABLE, PACED 80's, DENIES CP/PRESSURE. SpO2> 92% RA, DENIES SOB. NO C/O PAIN. FAMILY AT BEDSIDE. PT LEFT WITH TRANSPORT AT APPROXIMATELY 1315
== END 2024-11-17 13:20 | DRG 308 ==
LOC: ER 11:34 → ICUE 14:42 → PCU 14:42 → ER 15:10 → ICUE 15:35 → PCU 11-12 17:07
PROVIDERS: Emergency Medicine; Family Medicine; Internal Medicine Critical Care Medicine; Student in an Organized Health Care Education/Training Program; ADMIT Internal Medicine
PROC: 5A1935Z Respiratory Ventilation, Less than 24 Consecutive Hours (ICD-10-PCS; principal; 2024-11-10)
PROC: 4B02XTZ Measurement of Cardiac Defibrillator, External Approach (ICD-10-PCS; 2024-11-10)
PROC: 4B02XTZ Measurement of Cardiac Defibrillator, External Approach (ICD-10-PCS; 2024-11-10)
PROC: 0BH17EZ Insertion of Endotracheal Airway into Trachea, Via Natural or Artificial Opening (ICD-10-PCS; 2024-11-10)
DX: I47.29 Other ventricular tachycardia (principal); J96.01 Acute respiratory failure with hypoxia; I13.0 Hypertensive heart and chronic kidney disease with heart failure and stage 1 through stage 4 chronic kidney disease, or unspecified chronic kidney disease; I50.22 Chronic systolic (congestive) heart failure; N18.4 Chronic kidney disease, stage 4 (severe); I42.0 Dilated cardiomyopathy; I42.8 Other cardiomyopathies; I49.01 Ventricular fibrillation; I46.2 Cardiac arrest due to underlying cardiac condition; Z66 Do not resuscitate; I48.91 Unspecified atrial fibrillation; I34.0 Nonrheumatic mitral (valve) insufficiency; I25.10 Atherosclerotic heart disease of native coronary artery without angina pectoris; I95.89 Other hypotension; Z79.01 Long term (current) use of anticoagulants; Z95.3 Presence of xenogenic heart valve; Z95.810 Presence of automatic (implantable) cardiac defibrillator; Z88.8 Allergy status to other drugs, medicaments and biological substances; Z88.0 Allergy status to penicillin; Z87.891 Personal history of nicotine dependence; Z78.1 Physical restraint status
CPT/HCPCS: 31500; 36415; 51702; 70450; 70496; 70498; 71045; 80047; 80048; 80053; 80069; 81001; 82947; 83735; 83880; 84146; 84484; 85014; 85025; 85027; 85520; 85610; 87086; 93005; 93010; 93308; 93321; 94002; 94003; 96374-59; 97110; 97110-CQ; 97112-CQ; 97116; 97161; 97530; 99285-25; A9270; J2470; J2704; J3010; J7030; J7040; Q9967

== ENCOUNTER → 2025-06-20 | Outpatient (CLI) | payer MEDICARE, OTHER | LOC: LAB 11:44 | DX: L08.0 Pyoderma (principal) ==